=== PATIENT | female | born 1965 | race Caucasian/White ===

== ENCOUNTER 2016-07-08 12:59 | Emergency (ER) | payer BC ==
[~2016-07-08] VITALS: Ht 177.8 cm; Wt 68.0 kg
[2016-07-08] MEDS ORDERED: IBUPROFEN 600 MG TABLET PO ONE ×2 (13:23→13:30)
[2016-07-08 14:39] VITALS: BP 118/68
== END 2016-07-08 14:40 | disposition home or self-care (01) ==
LOC: ER 13:04
DX: S93.401A Sprain of unspecified ligament of right ankle, initial encounter (principal); X58.XXXA Exposure to other specified factors, initial encounter; Y93.89 Activity, other specified; Y92.89 Other specified places as the place of occurrence of the external cause; Y99.8 Other external cause status
CPT/HCPCS: 29515; 73610; 99284; A4606; Z7610